=== PATIENT | male | born 2000 | race Caucasian/White ===

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

== ENCOUNTER 2018-11-06 20:32 | Emergency (ER) | payer MEDICAID ==
[~2018-11-06] VITALS: Ht 188 cm; Wt 80.9 kg
[2018-11-06 20:33] VITALS: BP 155/72
[2018-11-06] MEDS ORDERED: LIDOCAINE-MPF 1%, 5ML ONE (21:23)
--- NOTE | 2018-11-06 21:44 | NUR ---
PT GIVEN SPLINT ON FOOT AND CRUTCH USE INSTRUCTIONS
== END 2018-11-06 21:46 | disposition home or self-care (01) ==
LOC: ED 21:40
DX: S92.511A Displaced fracture of proximal phalanx of right lesser toe(s), initial encounter for closed fracture (principal); W22.09XA Striking against other stationary object, initial encounter; Y93.89 Activity, other specified; Y92.009 Unspecified place in unspecified non-institutional (private) residence as the place of occurrence of the external cause; Y99.8 Other external cause status
CPT/HCPCS: 29515; 64450; 99283; 99284